=== PATIENT | male | born 2000 | race Hispanic/Latino ===

== ENCOUNTER 2022-11-17 16:14 | Observation (INO) | payer BC ==
[~2022-11-17 16:14] MED LIST: Iopamidol 300 61% 100 ML VIAL FS ONE
[2022-11-17 16:37] LABS: #Monocytes 0.9 10x3/uL (0.0-1.1); #Neutrophils 4.8 10x3/uL (1.5-8.4); %Basophils 0.4 % (0.0-2.0); %Eosinophils 0.1 % (0.0-6.0); %Lymphocytes 23.9 % (18.0-47.0); %Monocytes 11.3 % (0.0-10.0); Hemoglobin 15.4 g/dL (13.5-17.5); Mean Corpuscular HGB CONC 33.8 g/dL (32.0-36.0); Mean Corpuscular Hemoglobin 28.5 pg (27.0-33.0); Mean Corpuscular Volume 84.3 fl (81.2-95.1); Platelet Count 246 10x3/uL (150-450); RBC Distribution Width 13.2 % (11.5-14.5); White Blood Cell (WBC) Count 7.5 10x3/uL (3.5-10.5)
[2022-11-17 16:49] LABS: ALT (SGPT) 26 U/L (8-55); AST (SGOT) 12 U/L (5-34); Albumin 4.4 g/dL (3.5-5.0); Alkaline Phosphatase 86 U/L (40-110); Anion Gap 12 mmol/L (10-20); BUN (Urea Nitrogen) 11 mg/dL (8.9-20.6); Bilirubin, Total 0.6 mg/dL (0.2-1.2); Calc. Creatinine Clearance 0 mL/min (70-130); Calcium 9.6 mg/dL (7.8-10.44); Carbon Dioxide 27 mmol/L (22-29); Chloride 102 mmol/L (98-107); Estimated GFR 127; Globulin 4.3 g/dL (2.4-3.5); Glucose 97 mg/dL (70-105); Lipase 10 U/L (8-78); Protein, Total 8.7 g/dL (6.0-8.3); Sodium 137 mmol/L (136-145)
[2022-11-17 18:05] LABS: Bilirubin Neg (Negative); Blood, Urine Negative (Negative); Clarity Clear (Clear); Glucose, Urine (Dipstick) Normal (Negative); Ketone, Urine Negative (Negative); Leukocyte Negative (Negative); Nitrite Negative (Negative); Protein, Urine (Dipstick) Negative (Neg-Trace); Specific Gravity, Urine 1.015 (1.005-1.030); Urobilinogen Normal mg/dL (Less than 2)
[2022-11-17 19:44] LABS: SARS-CoV-2 NAA Rapid Test Not Detected (NotDetected)
[2022-11-17] MEDS ORDERED: Ondansetron ODT 4 MG TAB PO PRN (19:58)
[2022-11-17] MEDS ORDERED: Acetaminophen 325 MG TAB PO PRN (19:58)
[2022-11-17] MEDS ORDERED: Famotidine 20 MG TAB PO SCH (21:00)
[2022-11-17 21:07] LABS: HIV (1/2) Antibody/Antigen Reflxed Confirmation (NonReactive); HIV 1/2 INDEX 924.98 S/CO (<1.00)
[2022-11-17] MEDS ORDERED: Famotidine 20 MG TAB ONE (21:14)
[2022-11-17] MEDS ORDERED: Acetaminophen 325 MG TAB ONE (21:18)
[2022-11-19 14:38] LABS: HIV 1 Antibody Multi-Spot Reactive (Non Reactive); HIV 2 Antibody Multi-Spot Non Reactive (Non Reactive); HIV Multi-spot Interp HIV-1 Positive (.)
[2022-11-20 15:14] LABS: LOG10 HIV-1 RNA 5.149 (.)
== END 2022-11-18 02:33 | disposition short-term general hospital (02) ==
LOC: CSHERS 16:14 → CSHERHOLD 21:19 → INTOOBSV 21:19
PROVIDERS: ADMIT Student in an Organized Health Care Education/Training Program; ATTEND Emergency Medicine
DX: K92.1 Melena (principal); K62.89 Other specified diseases of anus and rectum; Z21 Asymptomatic human immunodeficiency virus [HIV] infection status; Z20.822 Contact with and (suspected) exposure to COVID-19
CPT/HCPCS: 36415; 74177; 80053; 81003; 83690; 85025; 86701; 86702; 87389; 87536; G0378; Q9967; U0002